=== PATIENT | female | born 1980 | race Caucasian/White ===

== ENCOUNTER 2018-10-14 06:29 | Emergency (ER) | payer SELFPAY ==
[~2018-10-14] VITALS: Ht 157.5 cm; Wt 52.0 kg
[2018-10-14 07:42] LABS: BASOPHILS % 0.9 % (0.0-2.0); EOSINOPHILS % 2.4 % (0.0-5.0); HEMATOCRIT. 41.6 % (36.0-48.0); HEMOGLOBIN. 14.3 g/dL (12.0-16.0); LYMPHOCYTES % 33.4 % (20.0-50.0); MEAN CORPUSCULAR HEMOGLOBIN 32.3 pg (28.0-32.0); MEAN CORPUSCULAR VOLUME 94.3 fL (81.0-99.0); MEAN PLATELET VOLUME 8.5 fl (7.4-10.4); MONOCYTES % 7.5 % (2.0-8.0); NEUTROPHILS % 55.8 % (40.0-76.0); PLATELET 219 x1000/uL (130-400); RED BLOOD CELL COUNT 4.42 mill/uL (4.2-5.4); RED CELL DISTRIBUTION WIDTH 13.1 % (11.6-14.6)
[2018-10-14 07:51] LABS: CHLORIDE 106 mEq/L (98-107)
[2018-10-14 07:53] LABS: D-DIMER < 0.19 mg/L FEU (<0.50); PROTHROMBIN TIME 9.9 sec (9.6-11.0)
[2018-10-14 08:18] LABS: HCG SCREEN NEGATIVE
[2018-10-14 12:50] VITALS: BP 119/68
== END 2018-10-14 12:58 | disposition home or self-care (01) ==
LOC: ER 07:23
DX: R07.9 Chest pain, unspecified (principal)
CPT/HCPCS: 36415; 71045; 83880; 84443; 84484; 84703; 85379; 93005; 99284